=== PATIENT | female | born 1945 | race Caucasian/White ===

== ENCOUNTER 2025-03-14 09:33 | Emergency (ER) | payer MEDICARE, BC ==
[~2025-03-14] VITALS: Ht 167.6 cm; Wt 91.0 kg
[~2025-03-14 09:33] MED LIST: GEMFIBROZIL600 MG PO; GLIPIZIDE10 MG PO; LOSARTAN-HCTZ1 EAC1 PO; METFORMIN HCL500 M1 PO
[2025-03-14 09:47] LABS: BASOPHILS 1.4 % (0-2); EOSINOPHILS 2.6 % (0-6); HEMATOCRIT 35.9 % (35.0-50.0); HEMOGLOBIN 12.1 g/dL (12.0-18.0); LYMPHOCYTES 29.4 % (24-44); MCH 26.4 (27-36); MCHC 33.7 g/dl (30-36); MCV 78.3 fl (81-99); MONOCYTES 4.6 % (0-12); PLATELET COUNT 332 K/uL (140-440); RBC 4.59 M/ul (4.3-5.7); RDW 17.3 (10.5-15.0)
[2025-03-14 09:58] LABS: ANION GAP 14.7 (7-21); CALCIUM 9.3 mg/dL (8.5-10.1); CREATININE, SERUM 1.5 mg/dL (0.55-1.02); POTASSIUM 4.7 mmol/L (3.5-5.1)
[2025-03-14] MEDS ORDERED: LIDOCAINE/RACEPINEP/TETRACAINE 3 ML SYR TOP ONE (10:30)
[2025-03-14 11:55] VITALS: BP 152/78
== END 2025-03-14 11:55 | disposition home or self-care (01) ==
LOC: ED 09:33
PROVIDERS: Emergency Medicine
DX: S02.2XXA Fracture of nasal bones, initial encounter for closed fracture (principal); S61.411A Laceration without foreign body of right hand, initial encounter; I10 Essential (primary) hypertension; E11.9 Type 2 diabetes mellitus without complications; W18.30XA Fall on same level, unspecified, initial encounter; Z79.899 Other long term (current) drug therapy; Z88.5 Allergy status to narcotic agent
CPT/HCPCS: 36415; 70450; 70486; 73130; 80048; 85025; 99284-25; G0480

== ENCOUNTER 2025-03-16 15:02 | Emergency (ER) | payer MEDICARE, BC ==
[~2025-03-16] VITALS: Ht 167.6 cm; Wt 84.6 kg
--- OUTSIDE RECORDS SUMMARY | 2025-03-16 15:09 | XMS ---
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 Tyesha VISIT COUNT (12 MO.) [address] Ligia Onofre ([place]) TOTAL 3 NOTE: Visits indicate total known visits. ED/UCC VISIT TRACKING (12 MO.) 03/16/2025 15:02 [facility] TYPE: Emergency COMPLAINT: - HAND ISSUE 03/14/2025 09:33 [facility] TYPE: Emergency COMPLAINT: - FALL DIAGNOSES: - Allergy status to narcotic agent - Essential (primary) hypertension - Fall on same level, unspecified, initial encounter - Fracture of nasal bones, initial encounter for closed fracture - Laceration without foreign body of right hand, initial encounter - Other intermediate (current) drug therapy - Type 2 diabetes mellitus without complications - Unspecified injury of face, initial encounter [facility] DIAGNOSES: - Unspecified glaucoma - Eye Pain - eye pressure issues - Headache (Adult - New Onset Or New Symptoms) INPATIENT VISIT TRACKING (12 MO.) No inpatient visits to display in this time frame [email or web address]
[2025-03-16 15:55] VITALS: BP 136/73
== END 2025-03-16 15:55 | disposition home or self-care (01) ==
LOC: ED 15:02
DX: S01.21XD Laceration without foreign body of nose, subsequent encounter (principal); S61.212D Laceration without foreign body of right middle finger without damage to nail, subsequent encounter; E11.9 Type 2 diabetes mellitus without complications; I10 Essential (primary) hypertension; X58.XXXD Exposure to other specified factors, subsequent encounter
CPT/HCPCS: 99282